=== PATIENT | female | born 1995 | race Caucasian/White ===

== ENCOUNTER 2016-07-02 16:24 | Emergency (ER) | payer OTHER ==
[~2016-07-02] VITALS: Ht 175.3 cm; Wt 77.1 kg
[2016-07-02 17:32] VITALS: BP 129/63
--- NOTE | 2016-07-02 17:35 | PHYS DOC ---
Past Medical History Past Medical History: No Pertinent History Past Surgical History: Other Additional Past Surgical Histo: R ACL and Meniscus Alcohol Use: Occasionally Drug Use: None Adult General Chief Complaint Chief Complaint: LOWER EXT PAIN HPI HPI Patient is a 21 year old female sent to the ED by Dr. Christian, orthopedics, for rule out DVT. The patient had right knee ACL reconstruction one week ago yesterday. She has been wearing a brace that requires her to keep her knee straight at all times. For the last 2 days, she has noticed some pain in her posterior calf just below the knee and some swelling. Patient denies history of DVT. She is in good health with no chronic medical problems. Review of Systems Review of Systems Constitutional: Denies fever or chills [] Respiratory: Denies cough or shortness of breath [] Musculoskeletal: Denies swelling elsewhere Allergies Allergies Allergies Coded Allergies Type Severity Reaction Last Updated Verified No Known Drug Allergies 07/02/16 No Physical Exam Physical Exam Constitutional: Well developed, well nourished, no acute distress, non-toxic appearance. Alert, mentating normally. HENT: Normocephalic, atraumatic, bilateral external ears normal, nose normal. [ ] Eyes: conjunctiva normal, no discharge. [] Neck: Normal range of motion, no stridor. [] Skin: Warm, dry, no erythema, no rash. [] Extremities: Right leg is in a knee brace which was removed for exam, keeping the patient's knee extended at all times. Right knee has Steri-Strips in place over healing incisions which look healthy without drainage or cellulitis. Right knee has moderate soft swelling without concerning features for cellulitis. Right calf is very soft, mild tenderness to palpation over the proximal calf just distal to the knee posteriorly. Foot is warm with good DP pulse and minimal swelling. There is mild swelling below the knee to the ankle. Neurologic: Alert and oriented X 3, normal motor function, normal sensory function, no focal deficits noted. [] Current Patient Data Vital Signs Vital Signs Date Time Temp Pulse Resp B/P (MAP) Pulse Ox O2 Delivery O2 Flow Rate FiO2 07/02/16 16:30 98.5 86 18 154/72 (99) 99 Room Air 98.5 EKG EKG [] Radiology/Procedures Radiology/Procedures Venous Doppler of the right leg read by the radiologist. Negative for DVT. [] Course & Med Decision Making Course & Med Decision Making Pertinent Labs and Imaging studies reviewed. (See chart for details) 21-year-old female postop day 7 from ACL reconstruction sent in by her orthopedic surgeon for rule out DVT. She has some mild swelling and some pain that has developed over the last couple of days of her posterior calf. Venous Doppler ultrasound negative for DVT. I am not clinically suspicious for DVT, her calf is very soft and her swelling appears mild to me. See instructions, she can continue to follow the instructions given to her by orthopedics and follow up as planned. [] Dragon Disclaimer Dragon Disclaimer This electronic medical record was generated, in whole or in part, using a voice recognition dictation system. Departure Departure Impression: Primary Impression: Pain and swelling of right lower leg Disposition: 01 HOME, SELF-CARE Condition: STABLE Referrals: UNKNOWN PCP NAME (PCP) Additional Instructions: Today, ultrasound of the veins of your calf did not show any blood clot. Continue to follow postoperative instructions given to your by your orthopedic surgeon. Follow up with your orthopedic surgeon as planned for recheck. SLADE LAWSON MD July 02, 2016 17:35
--- NOTE | 2016-07-02 17:36 | RAD ---
PROCEDURE Venous duplex examination of the right lower extremity HISTORY Rightleg swelling and pain. FINDINGS Duplex sonography of the proximal aspect of the greater saphenous vein and the proximal aspect of the profunda femoral vein and the entire length of the common femoral and superficial femoral and popliteal veins and the tibioperoneal trunk and the proximal aspect of the posterior tibial and peroneal veins of therightleg was performed. Normal compressibility, augmentation of color Doppler flow after calf compression, and respiratory variation of Doppler flow is seen. Thus, there are no sonographic findings of deep venous thrombosis within these veins. IMPRESSION Negative for Deep Venous Trombosis. Electronically signed by: Dharmesh Gutierrez MD (July 02, 2016 17:34:39)
== END 2016-07-02 17:50 | disposition home or self-care (01) ==
LOC: ER 16:24
DX: M79.661 Pain in right lower leg (principal); M25.561 Pain in right knee; M79.89 Other specified soft tissue disorders; Z98.890 Other specified postprocedural states
CPT/HCPCS: 93971; 99284-25